=== PATIENT | female | born 1955 | race Caucasian/White ===

== ENCOUNTER 2017-08-21 00:23 | Inpatient (IN) | payer OTHER ==
[~2017-08-21] VITALS: Ht 160 cm; Wt 74.8 kg
--- NOTE | 2017-08-21 00:34 | ED GI/GU/ABDOMINAL COMPLAINT ---
History of Present Illness General Chief Complaint: Abdominal Pain/Flank Pain Stated Complaint: BIBA ABD PAIN,VOMITING Source: patient, family, old records, EMS Exam Limitations: no limitations Vital Signs & Intake/Output Vital Signs & Intake/Output Vital Signs Date Time Temp Pulse Resp B/P B/P Pulse O2 O2 Flow FiO2 Mean Ox Delivery Rate 08/21 0315 100.0 88 18 146/81 95 Room Air 08/21 0154 8.3 91 18 149/73 96 Room Air 08/21 0030 Room Air 08/21 0027 99.7 109 20 184/101 100 Room Air Allergies Coded Allergies: No Known Allergies (08/21/17) Triage Nurses Notes Reviewed? yes ? N Is pt currently ? No HPI: Patient percent with gradual onset of sharp crampy pain in her periumbilical area that radiates to her left upper quadrant and then around to her left flank. The pain started approximately 3 hours ago and has steadily been getting worse. Positive nausea and vomiting 1. No constipation or diarrhea. No dysuria or hematuria. There are no aggravating or mitigating factors. The pain is constant. The pain is currently 10 out of 10. There are no fevers or chills. Past History Travel History Traveled to [place] past 21 day No Medical History Any Pertinent Medical History? see below for history Gastrointestinal: PANCREATIC PSEUDOCYST Pneumonia Vaccine: 10/21/12 Influenza Vaccine: 05/26/13 Surgical History Surgical History: cholecystectomy, PANCREATIC CYST DRAINAGE X 3 Psychosocial History Who do you live with Family Services at Home None What is your primary language Fijian Tobacco Use: Quit >30 days ago ETOH Use: occasional use Illicit Drug Use: denies illicit drug use Family History Hx Contributory? No Review of Systems Review of Systems Constitutional: Reports: no symptoms. EENTM: Reports: no symptoms. Respiratory: Reports: no symptoms. Cardiovascular: Reports: no symptoms. GI: Reports: see HPI, abdominal pain, nausea, vomiting. Genitourinary: Reports: no symptoms. Musculoskeletal: Reports: no symptoms. Skin: Reports: no symptoms. Neurological/Psychological: Reports: no symptoms. Hematologic/Endocrine: Reports: no symptoms. Immunologic/Allergic: Reports: no symptoms. All Other Systems: Reviewed and Negative Physical Exam Physical Exam General Appearance: well developed/nourished, alert, awake, anxious, moderate distress Head: atraumatic, normal appearance Eyes: Bilateral: PERRL, EOMI. Ears, Nose, Throat, Mouth: hearing grossly normal, DRY MUCOSA Neck: normal inspection, supple, full range of motion Respiratory: normal breath sounds, chest non-tender, no respiratory distress, lungs clear Cardiovascular: regular rate/rhythm, normal peripheral pulses Gastrointestinal: normal bowel sounds, soft, no organomegaly, tenderness, NO GUARDING OR REBOUND Back: normal inspection, normal range of motion Extremities: normal range of motion Neurologic/Psych: no motor/sensory deficits, awake, alert, oriented x 3, normal mood/affect Skin: intact, normal color, warm/dry Core Measures ACS in differential dx? No Sepsis Present: No Sepsis Focused Exam Completed? No Progress Differential Diagnosis: AAA, AMI, appendicitis, bowel obstruction, colon cancer, diverticulitis, gastritis, hepatitis, ischemic bowel, inflamm bowel dis, pancreatitis, peptic ulcer, PUD/GERD, SBO Plan of Care: Orders Procedure Date/time Status Nothing by Mouth 08/21 B Active Patient Data 08/21 321 Active ED Holding Orders 08/21 313 Active Admit to inpatient 08/21 313 Active Vital Signs 08/21 313 Active Code Status 08/21 313 Active Intake & Output 08/21 35 Active URINALYSIS 08/21 33 Complete TROPONIN LEVEL 08/21 33 Complete LIPASE 08/21 33 Complete COMPREHENSIVE METABOLIC PANEL 08/21 33 Complete CBC WITHOUT DIFFERENTIAL 08/21 33 Complete AMYLASE 08/21 33 Complete EKG 08/21 33 Active Laboratory Tests 08/21/17 0219: Urine Color STRAW, Urine Clarity CLEAR, Urine pH 5.5, Ur Specific [place] 1.015, Urine Protein NEG, Urine Ketones NEG, Urine Nitrite NEG, Urine Bilirubin NEG, Urine Urobilinogen 0.2, Ur Leukocyte Esterase NEG, Ur Microscopic EXAM NOT REQUIRED, Urine Hemoglobin NEG, Urine Glucose NEG 08/21/17 0036: Anion Gap 14, Estimated GFR > 60, BUN/Creatinine Ratio 18.3, Glucose 97, Calcium 9.7, Total Bilirubin 0.4, AST 32, ALT 37, Alkaline Phosphatase 115, Troponin I < 0.01, Total Protein 8.1, Albumin 4.6, Globulin 3.5, Albumin/Globulin Ratio 1.3, Amylase 77, Lipase 449 H, CBC w Diff MAN DIFF ORDERED, RBC 4.52, MCV 93.5, MCH 31.0, RDW 13.7, MPV 8.9, Gran % 60.0, Lymphocytes % 18.1 L, Monocytes % 20.9 H , Eosinophils % 0.7, Basophils % 0.3, Absolute Granulocytes 5.0, Segmented Neutrophils 68, Band Neutrophils 3, Absolute Lymphocytes 1.5, Lymphocytes 26, Monocytes 2, Absolute Monocytes 1.8 H, Eosinophils 1, Absolute Eosinophils 0.1, Absolute Basophils 0, Platelet Estimate ADEQUATE, Polychromasia 1+, Poikilocytosis 1+, Ovalocytes 1+, PUBS MCHC 33.1, Fld Total RBCs Counted 100 Initial ED EKG: NSR, no ST T wave changes Prior EKG: unchanged Departure Departure Disposition: STILL A PATIENT Condition: Fair Clinical Impression Primary Impression: Pancreatitis Referrals: Lenore HICKS,Sean Cristina (PCP/Family) Departure Forms: Customer Survey General Discharge Information Admission Note Spoke With: Qing Cabezas MD Documentation of Exam: Documentation of any treatments & extenuating circumstances including Concerns Regarding Discharge (functional status, medication knowledge or non-compliance, living conditions, etc.) that warrant an admission rather than observation: [NPO , IV FLUIDS, PAIN CONTROL, GI CONSULTATION]
[2017-08-21 00:43] LABS: ABSOLUTE BASOPHIL COUNT 0 /CUMM (0.0-0.2); ABSOLUTE EOSINOPHIL COUNT 0.1 /CUMM (0.0-0.7); ABSOLUTE LYMPH COUNT 1.5 /CUMM (1.2-3.4); ABSOLUTE MONOCYTE COUNT 1.8 /CUMM (0.10-0.60); BASOPHIL % 0.3 % (0.0-2.0); EOSINOPHIL % 0.7 % (0-5); HEMATOCRIT 42.3 % (37-47); MEAN CORPUSCULAR HGB CONC 33.1 G/DL (33.0-37.0); MEAN CORPUSCULAR VOLUME 93.5 FL (81.0-99.0); MEAN PLATELET VOLUME 8.9 FL (7.4-10.4); PLATELET COUNT 260 /CUMM (130-400); RBC DISTRIBUTION WIDTH 13.7 % (11.5-14.5); RED BLOOD CELL CT 4.52 /CUMM (4.20-5.40); WHITE BLOOD CELL COUNT 8.4 /CUMM (4.8-10.8)
--- NOTE | 2017-08-21 02:48 | CT SCAN REPORT ---
CT ABDOMEN AND PELVIS WITH CONTRAST CLINICAL INFORMATION: Periumbilical pain. COMPARISON: Abdominal MRI January 04, 2017. TECHNIQUE: Multidetector volumetric imaging was performed of the abdomen and pelvis following IV administration of 91 mL of Optiray 320 intravenous contrast. Sagittal and coronal reformatted images were obtained on the technologist's workstation. FINDINGS: Dependent atelectasis at the lung bases. Redemonstration of a 4.2 cm x 3.4 cm cyst within the body of the pancreas that is similar in size of the abdominal MRI from January 04, 2017. The pancreatic parenchyma is heterogeneous adjacent to the cyst and there are peripancreatic inflammatory changes raising the concern for superimposed acute pancreatitis. Recommend correlation with serum amylase/lipase. The splenic vein is patent. The liver, spleen, and adrenal glands are normal. The gallbladder is surgically absent. There is extensive aortoiliac atherosclerotic calcification. No aneurysm. The kidneys exhibit symmetric nephrograms without evidence of hydronephrosis or nephrolithiasis. No focal renal lesions. There is a moderate-sized hiatal hernia. Moderate volume intracolonic stool. The large and small bowel are normal in caliber without evidence of mechanical obstruction. No focal inflammatory changes adjacent to the large or the small bowel. The appendix is normal. There is no free air and there is no intra-abdominal free fluid. No mesenteric or retroperitoneal adenopathy. Fibroid uterus. No pelvic adenopathy. No free fluid within the pelvis. There are no acute osseous abnormalities. Small fat-containing umbilical hernia. IMPRESSION: Stable size of the known large cyst within the pancreatic body. There are new peripancreatic inflammatory changes adjacent to the pancreatic body and tail with parenchymal heterogeneity raising the concern for acute pancreatitis for which correlation with serum amylase/lipase is recommended.
[2017-08-21] MEDS ORDERED: VITAMIN D250000 UNIT PO (04:10)
[2017-08-21] MEDS ORDERED: LEVOTHYROXINE100 MC1 PO (04:10)
[2017-08-21] MEDS ORDERED: ASPIRIN EC81 M1 PO (04:11)
--- NOTE | 2017-08-21 04:18 | History & Physical ---
Cesilia Moise 08/21/17 0418: General Information and HPI MD Statement: I have seen and personally examined SAGE DUNBAR and documented this H&P. The patient is a 62 year old F who presented with a patient stated chief complaint of l left quadrant abdominal pain radiating to flank.. Source of Information: patient, family, old records Exam Limitations: no limitations History of Present Illness: Ms Dunbar is a 62-year-old woman who is known to be in her usual state of health until a few weeks ago. Past GI history: gallstone pancreatitis complicated by pancreatic pseudocyst which was drained in 2012 (last endoscopic ultrasound was done in 2013), cholecystectomy, persistent left upper quadrant pain, GERD with esophagitis, H. pylori infection without MALT. She also has history of hypothyroidism. Nonsmoker. Nonalcoholic. She was brought to [facility] with a chief concern of acute onset of left upper quadrant pain, severity 10/10, radiation to the left back region, no aggravating or relieving factors. She had her regular meal approximately 3 hours, prior to presentation. She reported vomiting 3, nonbloody, green color. She had similar symptoms of acute onset of left upper quadrant pain, almost every week which was relieved only with rest. No report of chest pain, palpitations, shortness of breath. No loss of consciousness, other neurological symptoms. No dysuria, melena, bleeding per rectum, diarrhea. Allergies/Medications Allergies: Coded Allergies: No Known Allergies (08/21/17) Home Med list Aspirin (Ecotrin*) 81 MG TABLET. 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 Psychosocial History Services at Home: None ETOH Use: occasional use Illicit Drug Use: denies illicit drug use Review of Systems Review of Systems Constitutional: Reports: see HPI. Exam & Diagnostic Data Last 24 Hrs of Vital Signs/I&O Vital Signs Date Time Temp Pulse Resp B/P B/P Pulse O2 O2 Flow FiO2 Mean Ox Delivery Rate 08/21 0315 100.0 88 18 146/81 95 Room Air 08/21 0154 8.3 91 18 149/73 96 Room Air 08/21 0030 Room Air 08/21 0027 99.7 109 20 184/101 100 Room Air Intake & Output 08/21 0800 08/21 0000 08/20 1600 Intake Total 1000 Output Total Balance 1000 Intake, IV 1000 Patient 165 lb Weight Weight Reported by Patient Measurement Method Physical Exam General Appearance Alert Skin No Rashes, No Breakdown, No Significant Lesion Skin Temp/Moisture Exam: Warm/Dry Sepsis Skin Exam (color): Normal for Ethnicity HEENT Atraumatic Neck Supple Lymphatic Cervical nl Cardiovascular Regular Rate, Normal S1, Normal S2 Lungs Clear to Auscultation, Normal Air Movement Abdomen Normal Bowel Sounds, Soft, ttenderness in left upper quadrant, nno discoloration of the skin, negative Yvon and Canela Weber. Neurological Normal Speech, Strength at 5/5 X4 Ext, Normal Tone, Sensation Intact, Cranial Nerves 3-12 NL, Reflexes 2+ Extremities No Clubbing, No Cyanosis, No Edema Vascular Pulses Symmetrical Sepsis Peripheral Pulse Location: Dorsalis Pedis Sepsis Peripheral Pulse Exam: Normal Body Front and Back (Adult) 1) Reported pain and tenderness Diagnostic Data EKG Results Normal sinus rhythm, normal axis, nonspecific ST changes seen. Assessment/Plan Assessment: Ms Dunbar is a 62 yr old woman gallstone pancreatitis complicated by pancreatic pseudocyst which was drained in 2012 (last endoscopic ultrasound was done in 2013), cholecystectomy, persistent left upper quadrant pain, GERD with esophagitis, H. pylori infection without MALT. She also has history of hypothyroidism. At the time of admission, vitals-temperature 99.7, blood pressure 146/81, respiration 18, pulse rate 88, pulse ox 96% on room air. Pertinent lab findings: WBC 8.4, hemoglobin 14.0, platelets 260. Normal electrolytes sodium 143, potassium 4.4 Renal function-BUN 11, serum creatinine 0.6. Liver chemistries-AST 32, ALT 37, alkaline phosphatase 115. Lipase 449, amylase 77. Cardiac enzymes-troponin 0.01. CT scan of abdomen revealed 4.2 cm x 3.4 cm cyst within the body of the pancreas , which is similar in size to previous imaging findings. Although pancreatic parenchyma is heterogeneous adjacent to the cyst and there are peripancreatic inflammatory changes raising the concern for superimposed acute pancreatitis. Etiology in her case is likely from gallstone causing pancreatitis; she also has a pancreatic pseudocyst which is stable in size, with findings suggestive of chronic pancreatitis. She has been having pain, which raises concern for chronic pancreatitis changes or abdominal wall related. She has abdominal pain, and radiological findings, for which she could be treated for acute pancreatitis. Lipase, amylase are not elevated likely from mild nature of disease and/or chronic pancreatic acinar cell damage. Plan: #1 abdominal pain-secondary to acute pancreatitis; patient should be started on intravenous fluids-Ringer's lactate 200 mL an hour. Nothing by mouth at this time. Advance diet as tolerated. Right upper quadrant ultrasound should be done, if any change in biliary ductal anatomy. GI consult. #2 pain management-to be done with morphine, Dilaudid and Tylenol. Defer the decision to start any pancreatic enzymatic supplements to the GI at this time. Amitriptyline could be tried in her case. #3 hypothyroidism-continue home dose of LT4. Housekeeping: #1 DVT prophylaxis-subcutaneous heparin. #2 pain pathway #3 CODE STATUS-full code. As Ranked By This Provider Problem List: 1. Pancreatitis 2. ac pancreatitis Core Measures/Misc (05/12) Acute Coronary Syndrome ACS Diagnosis: No Congestive Heart Failure Congestive Heart Failure Diagnosis No Cerebrovascular Accident CVA/TIA Diagnosis: No VTE (View Protocol) VTE Risk Factors No risk factors No Mechanical VTE Prophylaxis d/t N/A MechProphylax Ordered No VTE Pharm Prophylaxis d/t NA PharmProphylax ordered Sepsis (View protocol) Sepsis Present: No Qing Cabezas 08/21/17 0934: Attending MD Review Statement Attending Statement Attending MD Statement: examined this patient, discuss w/resident/PA/CAKE WRAPPER, agreed w/resident/PA/CAKE WRAPPER, discussed with family, reviewed EMR data (avail), reviewed images, amended to note Attending Assessment/Plan: CC: Left flank pain and abdominal pain PMH: Hypothyroidism, recurrent pancreatitis Patient is coming to hospital for three-hour duration of severe 10 over 10 pain in left flank, left side of the abdomen. Patient gets this kind of pain on and off, last pain episode was 3 weeks back which she self treated with the heat therapy at home but today patient's pain was intolerable, had 3 episodes of nonbloody green vomiting so she came to ER. Of note patient has a history of pancreatitis since 2012, probably related to gallstone, had this cholecystectomy but unfortunately developed pancreatic pseudocyst which was drained in the past. Most recently patient underwent EUS and biopsy, persistently has pancreatic pseudocyst. Patient follows up with GI gastroenterology and Dr. Blanchard. Other than abdominal pain patient does not have any other symptoms, no fever, ROS unremarkable. Vitals: T max 99.7, HR 107, RR 20, blood pressure 184/101, saturating well on room air. On exam: A O 3, cooperative, no acute distress, neck supple, JVD normal, no lymphadenopathy, mucosa moist, no focal neurological deficit, no dependent edema , no obvious skin rashes or inflammation CVS: S1-S2, RRR. RS: Clear to auscultate bilaterally. Abdomen: Tender all over, no guarding or rigidity ND, bowel sounds present. Labs: CBC, BMP, LFT, troponin unremarkable lipase 449, UA unremarkable CT abdomen and pelvis with IV contrast: Stable size of the known large cyst within the pancreatic body. There are new peripancreatic inflammatory changes adjacent to the pancreatic body and tail with parenchymal heterogeneity raising the concern for acute pancreatitis for which correlation with serum amylase/lipase is recommended. Assessment and plan 62-year-old female with past medical history significant for chronic Vs recurrent pancreatitis with chronic pancreatic pseudocyst presented in ER for worsening Abdominal pain over a few hours duration, more on the left flank, 10 over 10, nonradiating. Patient was tender on examination but no guarding or rigidity. Even though lipase is not significantly elevated, she is found to have pancreatitis on CT imaging with stable sized large known cyst within pancreatic body. + acute on chronic pancreatitis with pseudocyst + History of hypothyroidism - Admit to general medicine - continue Ringer's lactate at 200 mL per hour - GI consult in a.m., - Right upper quadrant ultrasound, - nothing by mouth - Adequate pain control - Continue home doses of levothyroxine
[2017-08-21 04:30] VITALS: BP 126/70
[2017-08-21 06:33] VITALS: BP 100/60
[2017-08-21 09:21] LABS: ABSOLUTE BASOPHIL COUNT 0 /CUMM (0.0-0.2); ABSOLUTE EOSINOPHIL COUNT 0 /CUMM (0.0-0.7); ABSOLUTE LYMPH COUNT 0.6 /CUMM (1.2-3.4); ABSOLUTE MONOCYTE COUNT 0.3 /CUMM (0.10-0.60); BASOPHIL % 0 % (0.0-2.0); EOSINOPHIL % 0.2 % (0-5); RED BLOOD CELL CT 3.87 /CUMM (4.20-5.40)
--- NOTE | 2017-08-21 09:36 | Admission Certification ---
Admission Certification Certification Statement - As attending physician, I certify that at the time of - admission, based on clinical presentation, severity of - symptoms, need for further diagnostic testing and - therapeutic interventions, and risk of adverse outcomes - without in-hospital treatment, in my clinical assessment, - this patient requires an acute hospital stay for a minimum - of two nights or longer. I have also considered psychsocial - factors such as support system, advanced age, financial - issues, cognitive issues, and failed out-patient treatments, - past re-admission history, safety of patient, and lack of - compliance as applicable. Specific rationale supporting this admission is: Acute and chronic pancreatitis
[2017-08-21 09:37] LABS: ABSOLUTE GRANULOCYTE CT 11.6 /CUMM (1.4-6.5); MEAN CORPUSCULAR HGB 31.5 PG (27.0-31.0); MEAN CORPUSCULAR HGB CONC 33.8 G/DL (33.0-37.0); MEAN CORPUSCULAR VOLUME 93.3 FL (81.0-99.0); RBC DISTRIBUTION WIDTH 13.2 % (11.5-14.5); WHITE BLOOD CELL COUNT 12.5 /CUMM (4.8-10.8)
[2017-08-21 09:43] LABS: HEMATOCRIT 36.1 % (37-47)
[2017-08-21 09:59] LABS: GRANULOCYTE % 92.7 % (42.2-75.2)
--- NOTE | 2017-08-21 10:28 | ULTRASOUND REPORT ---
EXAMINATION: US ABDOMEN COMPLETE CLINICAL INFORMATION: Abdominal pain.. COMPARISON: None TECHNIQUE: Real-time imaging of the abdominal viscera. FINDINGS: PANCREAS: 4.2 x 4.2 x 3.5 cm anechoic, simple appearing cyst of the pancreatic body. This cyst measured up to 3.6 cm maximum dimension on 06/09/2014. No evidence of mural nodule or thick, vascular septation within the lesion. Pancreatic duct is normal in caliber. ABDOMINAL AORTA: The proximal segment is normal in caliber. INFERIOR VENA CAVA: Visualized portions are normal. LIVER: Normal. The liver demonstrates normal size, contour and echogenicity. No focal lesion or intrahepatic biliary duct dilatation. GALLBLADDER: Gallbladder is surgically absent. COMMON BILE DUCT: Normal in caliber measuring 0.7 cm in diameter. RIGHT KIDNEY: Normal. No hydronephrosis. No renal calculi or focal parenchymal lesions. The kidney measures 10.3 cm in maximum dimension. LEFT KIDNEY: Normal. No hydronephrosis. No renal calculi or focal parenchymal lesions. The kidney measures 10.5 cm in maximum dimension. SPLEEN: Normal. The spleen measures 9.8 cm in maximum dimension. FREE FLUID: None. IMPRESSION: 1. The 4.2 x 4.2 x 3.5 cm cyst within the pancreatic body has a simple appearance. 2. Mild peripancreatic edema observed on the recent CT imaging exam (suggestive of mild pancreatitis) is not detected with ultrasound.
--- NOTE | 2017-08-21 13:56 | PN- Att Addend ---
Attending Addendum Attending Brief Note Patient seen and examined. Lying in bed not in acute distress. Denies nausea vomiting at present. Reports abdominal pain has improved She had low-grade fever of 100.0. White cell count has trended up to 12.5 today. Gen. appearance: Well developed, not in acute distress Heart: S1-S2 regular Lungs: Fair entry bilaterally, clear to auscultation Abdomen: Soft, mild diffuse tenderness, no rebound, no guarding with normal bowel sounds Extremities: No pedal edema Skin: Intact with no rashes Laboratory Tests 08/21/17 0845: Anion Gap 11, Estimated GFR > 60, BUN/Creatinine Ratio 22.5, Total Bilirubin 0.3 , Direct Bilirubin 0.3, AST 97 H, ALT 75 H, Alkaline Phosphatase 96, Troponin I < 0.01, Total Protein 6.3, Albumin 3.4 L, CBC w Diff NO MAN DIFF REQ, RBC 3.87 L, MCV 93.3, MCH 31.5 H, RDW 13.2, Gran % 92.7 H, Lymphocytes % 4.7 L, Monocytes % 2.4, Eosinophils % 0.2, Basophils % 0, Absolute Granulocytes 11.6 H , Absolute Lymphocytes 0.6 L, Absolute Monocytes 0.3, Absolute Eosinophils 0, Absolute Basophils 0, PUBS MCHC 33.8 08/21/17 0600: Troponin I Cancelled 08/21/17 0219: Urine Color STRAW, Urine Clarity CLEAR, Urine pH 5.5, Ur Specific [place] 1.015, Urine Protein NEG, Urine Ketones NEG, Urine Nitrite NEG, Urine Bilirubin NEG, Urine Urobilinogen 0.2, Ur Leukocyte Esterase NEG, Ur Microscopic EXAM NOT REQUIRED, Urine Hemoglobin NEG, Urine Glucose NEG 08/21/17 0036: Anion Gap 14, Estimated GFR > 60, BUN/Creatinine Ratio 18.3, Glucose 97, Calcium 9.7, Total Bilirubin 0.4, AST 32, ALT 37, Alkaline Phosphatase 115, Troponin I < 0.01, Total Protein 8.1, Albumin 4.6, Globulin 3.5, Albumin/Globulin Ratio 1.3, Amylase 77, Lipase 449 H, CBC w Diff MAN DIFF ORDERED, RBC 4.52, MCV 93.5, MCH 31.0, RDW 13.7, MPV 8.9, Gran % 60.0, Lymphocytes % 18.1 L, Monocytes % 20.9 H , Eosinophils % 0.7, Basophils % 0.3, Absolute Granulocytes 5.0, Segmented Neutrophils 68, Band Neutrophils 3, Absolute Lymphocytes 1.5, Lymphocytes 26, Monocytes 2, Absolute Monocytes 1.8 H, Eosinophils 1, Absolute Eosinophils 0.1, Absolute Basophils 0, Platelet Estimate ADEQUATE, Polychromasia 1+, Poikilocytosis 1+, Ovalocytes 1+, PUBS MCHC 33.1, Fld Total RBCs Counted 100 08/21/17 0033: Urine Osmolality 432, Ur Random Creatinine 31.5, Ur Random Sodium 156 H, Ur Random Potassium 22.9, Fraction Sodium Excret 1.5 H Problems: 1. Recurrent pancreatitis with large cyst Plan: -Patient reports that she had a pancreatic cyst drained this summer at [facility]. Please obtain records. -Continue IV hydration. Continue current pain regimen. Once she begins to improve clinically transitioned to oral pain regimen. -Follow-up with the gastroenterology service whether patient will requireDrainage of her current cyst. -If patient becomes febrile obtain blood cultures and begin on broad-spectrum antibiotic therapy. -Repeat serum chemistry and CBC in a.m.
[2017-08-21 14:24] VITALS: BP 120/70
[2017-08-21 23:00] VITALS: BP 110/60
--- NOTE | 2017-08-22 00:38 | Cons- Gastroenterology ---
General Information and HPI Consulting Request Date of Consult: 08/21/17 Requested By: Julia HICKS,Golden Reason for Consult: I was called earlier today to assess pancreatitis in coverage for Dr. Stacia Blanchard. Source of Information: patient, old records Exam Limitations: not all of the old [place] [facility] records were scanned into [facility]. History of Present Illness: 62 y/o female, non-HTN, non-DM, non-HLD, hypoT4, post 10/20/12: lap CCKY for gallstone pancreatitis, c/b pancreatic pseudocyst, drained in 2012. She was last seen by Dr. Stacia Blanchard in the office 12/20/16. She previously had multiple procedures by him, and has a history of H. pylori gastritis with mucosal immune proliferation, but no MALT lymphoma. When last seen by him, she claimed she saw Dr. Lee at [facility] to reassess her pancreatic cyst, after her 01/04/17: MRI abdomen. *She claimed Dr. Lee drained her "pseudocyst' via repeat EUS at [facility] in 01/2017, but I could not locate this in [facility] EMR. She previously had 11/24/13: EUS with FNA in [place] by Dr. Ulloa (who subsequently relocated). The FNA then of her pancreatic cyst at the junction of the body & tail was reportedly benign. However, the results were never scanned into the [facility] EMR. 01/04/17: MR ABDOMEN WITHOUT AND WITH CONTRAST- Evidence of interval increase in size of the indexed, clinically known, unilocular, simple-appearing cystic mass involving the body of the pancreas, measuring approximately 4.2 cm at its maximum dimension as compared to 3.4 cm on the most recent prior MRI study dated 06/09/2014. No other significant change or any new abnormalities. 01/14/13: EGD/colonoscopy for GERD, dysphagia, & screening- minimal esophagitis- bxs neg, gastritis- severe CAG/mod CFG with IM, + HP, *special stains negative for lymphoproliferative disorder but indeterminate for clonal rearrangement; diminuitive colon polyps- hyperplastic, focal right colonic diverticulum. [H. pylori txd with ? regimen]. 04/06/13: Repeat EGD- improved gastritis, healed GERD. Repeat bxs- moderate lympho-plasmacytic infiltration and intestinal metaplasia, H. pylori negative. No evidence of lymphoma. 08/25/14: Repeat EGD- HH, mild gastritis, multiple gastric bxs- reactive gastropathy with focal IM, negative dysplasia, H. pylori negative, benign fundic gland polyp. No evidence of lymphoma. Duodenal erosions. The patient denied any history of EtOH. Ex-20 pk yr cigarette smoker, D/C 2012. The patient presented to the [place] ER 08/21/17, arriving at 12:23 a.m., c/o acute onset LUQ pain, "10 out of 10", radiating to the left back, without any ameliorating or precipitating factors. She ate a non-greasy meal 3 hours prior to the onset of her symptoms. Upon arrival to the ER, BP 184/101, P 109, R 20, T 99.7 (Tm 100), O2 sat RA 100%. Her BP improved with pain control. She had 3 episodes of nausea & vomiting, nonbloody & bilious in nature. She denied any associated CP, SOB, palpitations, fevers, chills, jaundice, dark urine, light stools, pruritus, or confusion. She denied any sx of UTI or URI. Her weight was stable. Since her pancreatic cyst was last drained at [facility] in 01/2017, she had minor flares of abdominal pain every few weeks. She denied any long-standing diarrhea, constipation, obstipation, tenesmus, or rectal bleeding. She was given IVF, MS, & Zofran in the ER. The analgesics helped, but "seemed to wear off before the next dose". She had minimal symptoms of GERD, without any odynophagia, dysphagia, hematemesis, early satiety, or melena. She denied any NSAID use, Sulfa meds, or HCTZ. She denied any new meds or herbal meds. Aside from her mother having GERD, she denied any FHx of additional GI disease, GBD, PUD, inherited pancreatitis, GI Ca, or inherited liver disease. One of her brothers had a liver transplant for Hep C. 10/15/12: *TG 44. 09/25/13: Hep A Ab, Hep Bs Ag, Hep B core Ab, & Hep C Ab- all negative. 04/01/14: normal CA 19-9: 15 (< 34). 08/21/17: Admission labs 12:36 a.m.- WBC 8.4 (68S/3B/26L/2M/1E), H/H 14/42.3, MCV 93.5, RDW 13.7, PLT 260, glucose 97, BUN/Cr 11/0.6, GFR > 60, Na 143, K 4.4, HCO3 25, AG 14, amylase 77, minimal lipase 449, Ca 9.7, albumin 4.6, globulin 3.5, TBil 0.4, alk phos 115, AST 32, ALT 37, troponin < 0.01 08/21/17: 8:45 a.m.- WBC 12.5, H/H 12.2/36.1, PLT- clumped, BUN/Cr 9/0.4, GFR > 60, na 136, K 4.6, HCO3 20, AG 11, albumin 3.4, globulin 2.9, TBil 0.3, DBil 0.3 , alk phos 96, *AST 97, *ALT 75, troponin < 0.01. 08/21/17: U/A- clear straw, 1.015, 5.5, micro-neg; neg nitrite, neg esterase 08/21/17: EKG- NSR @ 88, normal axis, normal intervals, mild NSST. 08/21/17: CT ABD & PELVIS W IV CONTRAST- Stable size of the known large 4.2 x 3.4 cm cyst within the pancreatic body ( similar in size to abdominal MRI of 01/04/17, *although the patient claimed it was drained at [facility] in 01/2017). There are new peripancreatic inflammatory changes adjacent to the pancreatic body and tail with parenchymal heterogeneity raising the concern for acute pancreatitis for which correlation with serum amylase/lipase is recommended. Patent splenic vein. Post-CCKY. Extensive aorto-iliac ASHD, without AAA. Moderate HH. Normal AP. No free air, ascites, or adenopathy. Fibroid uterus. Small fat containing umbilical hernia. 08/21/17: US ABDOMEN COMPLETE- 1. The 4.2 x 4.2 x 3.5 cm cyst within the pancreatic body has a simple appearance. 2. Mild peripancreatic edema observed on the recent CT imaging exam (suggestive of mild pancreatitis) is not detected with ultrasound. Allergies/Medications Allergies: Coded Allergies: No Known Allergies (08/21/17) Home Med List: Aspirin (Ecotrin*) 81 MG TABLET. 1 TAB PO EOD HEART HEALTH (Reported) Ergocalciferol (Vitamin D2) (Vitamin D2) 50,000 UNIT CAPSULE 1 CAP PO QW VITAMIN SUPPORT (Reported) Levothyroxine Sodium 100 MCG TABLET 1 TAB PO DAILY THYROID HEALTH (Reported) Current Medications: Current Medications Sig/Aleta Start time Last Medication Dose Route Stop Time Status Admin Acetaminophen 650 MG Q8P PRN 08/21 0500 AC PO Aspirin Buffered 81 MG DAILY 08/21 1000 AC PO Heparin Sodium 5,000 UNIT Q8 08/21 0600 AC 08/21 (Porcine) SC 2014 Hydromorphone HCl 0.4 MG Q4P PRN 08/21 1130 AC 08/22 IV 0037 Hydromorphone HCl 0.4 MG Q6P PRN 08/21 0500 DC 08/21 IV 1020 Lactated Ringer's 1,000 ML Q8H 08/21 0500 DC 08/21 IV 08/21 1759 2013 Levothyroxine Sodium 0.1 MG DAILY AC 08/21 0700 AC 08/21 PO 0637 Morphine Sulfate 2 MG Q6P PRN 08/21 0445 AC 08/21 IV 2347 Morphine Sulfate 0 .STK-MED ONE 08/21 0332 DC .ROUTE Morphine Sulfate 4 MG ONCE ONE 08/21 0300 DC 08/21 IV 08/21 0301 0333 Ondansetron HCl 4 MG ONCE ONE 08/21 1515 DC 08/21 IV 08/21 1516 1531 Sodium Chloride 1,000 ML BOLUS ONE 08/21 0045 DC 08/21 IV 08/21 0144 0044 Past History Travel History Traveled to [place] past 21 day No Medical History Blood Transfusion Hx: No Neurological: NONE EENT: NONE Cardiovascular: NONE Respiratory: NONE Gastrointestinal: PANCREATIC PSEUDOCYST, Hx gallstone pancreatitis, post lap CCKY 10/20/12 Hepatic: cholelithiasis (*post lap CCKY) Renal: NONE Musculoskeletal: NONE Psychiatric: NONE Endocrine: hypothyroidism Blood Disorders: NONE Cancer(s): NONE WELDER FITTER GAS/Reproductive: NONE Surgical History Surgical History: cholecystectomy (10/20/12: lap CCKY), PANCREATIC CYST DRAINAGE X 3 Family History Relations & Conditions If Any: FATHER (coronary artery disease). , Age 77; Cause: ASHD ( arteriosclerotic heart disease). MOTHER (GERD). Age 90. BROTHER, , Age 58; Cause: AAA (abdominal aortic aneurysm). BROTHER (alive, post liver transplant for Hep C). Psychosocial History Where Do You Live? Home Who Do You Live With? boyfriend Services at Home: None Primary Language: Prydeinig Smoking Status: Light Tobacco Smoker ETOH Use: denies use Illicit Drug Use: denies illicit drug use Living Will? no Power of Commissary Superintendent/HCP? no Other Social History: Single. No children. Lives with boyfriend. Ex-20 pk yr cigarette smoker, essentially D/c 2012. No EtOH or illicit drugs. 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 Functional Ability ADLs Independent: dressing, eating, toileting, bathing. Ambulation: independent IADLs Independent: shopping, housework, finances, food prep, telephone, transportation , medication admin. 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 Review of Systems Constitutional: Denies: chills, diaphoresis, fever, malaise, weakness, unexplained weight loss. EENTM: Denies: blurred vision, double vision, visual changes, eye pain, eye drainage, eye tearing, icterus, ear discharge, ear pain, ear redness, hearing changes, nasal congestion, epistaxis, nasal pain, throat pain, throat swelling, mouth pain, tooth pain. Cardiovascular: Denies: chest pain, edema, orthopena, palpitations, peripheral edema, syncope. Respiratory: Denies: cough, hemoptysis, orthopnea, short of breath, sputum production, stridor, wheezing. GI: Reports: abdominal pain, nausea, vomiting. Denies: bloating, constipation, diarrhea, distention, bowel incontinence, melena, bloody stool, changes in stool , steatorrhea. Genitourinary: Denies: discharge, dysuria, frequency, hematuria, hesitation, nocturia, pain, urgency. Musculoskeletal: Denies: back pain, gout, joint pain, joint swelling, muscle pain, muscle stiffness, neck pain. Skin: Denies: cysts, change in skin color, change in hair/nails, dryness, erythema, jaundice, lesions, lymphangitis, lumps, moles, rash. Neurological/Psychological: Denies: anxiety, ataxia, cognitive dysfunction, confusion, depressed, dementia, emotional problems, headache, numbness, paresthesia, pre-existing deficit, petit mal seizures, tingling, tremors, tonic-clonic seizures, unable to move lower ext , unable to move upper ext, weakness. Hematologic/Endocrine: Denies: bruising, bleeding, polyuria, polydipsia. Immunologic/Allergic: Denies: splenectomy, HIV/AIDS, lymphadenopathy. All Other Systems: Reviewed and Negative Exam & Diagnostic Data Vital Signs and I&O Vital Signs Date Time Temp Pulse Resp B/P B/P Pulse O2 O2 Flow FiO2 Mean Ox Delivery Rate 08/21 2300 98.3 79 20 110/60 96 Room Air 08/21 1424 97.1 99 19 120/70 96 08/21 0633 97.1 83 20 100/60 91 Room Air 08/21 0430 98.1 95 20 126/70 94 Room Air 08/21 0315 100.0 88 18 146/81 95 Room Air 08/21 0154 8.3 91 18 149/73 96 Room Air 08/21 0030 Room Air 08/21 0027 99.7 109 20 184/101 100 Room Air Intake & Output 08/21 1600 08/21 0400 08/20 1600 08/20 0400 08/19 1600 08/19 0400 Intake Total 500 1000 Output Total Balance 500 1000 Intake, IV 500 1000 Intake, Oral 0 Patient 165 lb 165 lb Weight Weight Reported by Patient Reported by Patient Measurement Method Physical Exam: Well-developed, well-nourished female, non-toxic appearing, in no apparent distress. Sclera anicteric. Conjunctiva pink. Oropharynx clear. No oral thrush. No aphthous ulcers. There is no adenopathy, thyromegaly, or JVD. No peripheral stigmata of inflammatory bowel disease or chronic liver disease on exam. Marcelo spiders on the anterior chest wall. Breast & pelvic exams: API. No CVA tenderness. No spine tenderness. Lungs: clear to A&P. No wheezing, rales, or rhonchi. Heart exam: regular rate rhythm, S1 and S2, without any murmur. Abdominal exam: normal bowel sounds, soft belly, mild epigastric tenderness without guarding or rebound (medicated shortly before my exam). Small reducible umbilical hernia, otherwise no mass. No organomegaly. No fluid shift. No pulsatile mass. No epigastric bruit. Digital rectal exam: deferred by patient. Extremities: without C, C, or E. No rash. Mild DJD. No acute arthropathy. No palpable cords. No palmar erythema. No Dupuytren's contractures. Distal pulses 1+ bilaterally. DTRs 2+ bilaterally. Alert and oriented x 3. No tremor. No asterixis. Results Pertinent Lab Results: Laboratory Tests 08/21 08/21 0845 0600 Chemistry Sodium (137 - 145 mmol/L) 136 L Potassium (3.5 - 5.1 mmol/L) 4.6 Chloride (98 - 107 mmol/L) 105 Carbon Dioxide (22 - 30 mmol/L) 20 L Anion Gap (5 - 16) 11 BUN (7 - 17 mg/dL) 9 Creatinine (0.5 - 1.0 mg/dL) 0.4 L Estimated GFR (>60 ml/min) > 60 BUN/Creatinine Ratio (7 - 25 %) 22.5 Total Bilirubin (0.2 - 1.3 mg/dL) 0.3 Direct Bilirubin (< 0.4 mg/dL) 0.3 AST (14 - 36 U/L) 97 H ALT (9 - 52 U/L) 75 H Alkaline Phosphatase (<127 U/L) 96 Troponin I (< 0.11 ng/ml) < 0.01 Cancelled Total Protein (6.3 - 8.2 g/dL) 6.3 Albumin (3.5 - 5.0 g/dL) 3.4 L Hematology CBC w Diff NO MAN DIFF REQ WBC (4.8 - 10.8 /CUMM) 12.5 H RBC (4.20 - 5.40 /CUMM) 3.87 L Hgb (12.0 - 16.0 G/DL) 12.2 Hct (37 - 47 %) 36.1 L MCV (81.0 - 99.0 FL) 93.3 MCH (27.0 - 31.0 PG) 31.5 H RDW (11.5 - 14.5 %) 13.2 Plt Count (/CUMM) Gran % (42.2 - 75.2 %) 92.7 H Lymphocytes % (20.5 - 51.1 %) 4.7 L Monocytes % (1.7 - 9.3 %) 2.4 Eosinophils % (0 - 5 %) 0.2 Basophils % (0.0 - 2.0 %) 0 Absolute Granulocytes (1.4 - 6.5 /CUMM) 11.6 H Absolute Lymphocytes (1.2 - 3.4 /CUMM) 0.6 L Absolute Monocytes (0.10 - 0.60 /CUMM) 0.3 Absolute Eosinophils (0.0 - 0.7 /CUMM) 0 Absolute Basophils (0.0 - 0.2 /CUMM) 0 PUBS MCHC (33.0 - 37.0 G/DL) 33.8 08/21 08/21 0219 0036 Chemistry Sodium (137 - 145 mmol/L) 143 Potassium (3.5 - 5.1 mmol/L) 4.4 Chloride (98 - 107 mmol/L) 104 Carbon Dioxide (22 - 30 mmol/L) 25 Anion Gap (5 - 16) 14 BUN (7 - 17 mg/dL) 11 Creatinine (0.5 - 1.0 mg/dL) 0.6 Estimated GFR (>60 ml/min) > 60 BUN/Creatinine Ratio (7 - 25 %) 18.3 Glucose (65 - 99 mg/dL) 97 Calcium (8.4 - 10.2 mg/dL) 9.7 Total Bilirubin (0.2 - 1.3 mg/dL) 0.4 AST (14 - 36 U/L) 32 ALT (9 - 52 U/L) 37 Alkaline Phosphatase (<127 U/L) 115 Troponin I (< 0.11 ng/ml) < 0.01 Total Protein (6.3 - 8.2 g/dL) 8.1 Albumin (3.5 - 5.0 g/dL) 4.6 Globulin (1.9 - 4.2 gm/dL) 3.5 Albumin/Globulin Ratio (1.1 - 2.2 %) 1.3 Amylase (30 - 110 U/L) 77 Lipase (23 - 300 U/L) 449 H Hematology CBC w Diff MAN DIFF ORDERED WBC (4.8 - 10.8 /CUMM) 8.4 RBC (4.20 - 5.40 /CUMM) 4.52 Hgb (12.0 - 16.0 G/DL) 14.0 Hct (37 - 47 %) 42.3 MCV (81.0 - 99.0 FL) 93.5 MCH (27.0 - 31.0 PG) 31.0 RDW (11.5 - 14.5 %) 13.7 Plt Count (130 - 400 /CUMM) 260 MPV (7.4 - 10.4 FL) 8.9 Gran % (42.2 - 75.2 %) 60.0 Lymphocytes % (20.5 - 51.1 %) 18.1 L Monocytes % (1.7 - 9.3 %) 20.9 H Eosinophils % (0 - 5 %) 0.7 Basophils % (0.0 - 2.0 %) 0.3 Absolute Granulocytes (1.4 - 6.5 /CUMM) 5.0 Segmented Neutrophils (42.2 - 75.2 %) 68 Band Neutrophils (0.0 - 5.0 %) 3 Absolute Lymphocytes (1.2 - 3.4 /CUMM) 1.5 Lymphocytes (20.5 - 51.1 %) 26 Monocytes (1.7 - 9.3 %) 2 Absolute Monocytes (0.10 - 0.60 /CUMM) 1.8 H Eosinophils (0 - 5.0 %) 1 Absolute Eosinophils (0.0 - 0.7 /CUMM) 0.1 Absolute Basophils (0.0 - 0.2 /CUMM) 0 Platelet Estimate (ADEQUATE) ADEQUATE Polychromasia 1+ Poikilocytosis 1+ Ovalocytes 1+ PUBS MCHC (33.0 - 37.0 G/DL) 33.1 Other Body Source Fld Total RBCs Counted (%) 100 Urines Urine Color (YEL,AMB,STR) STRAW Urine Clarity (CLEAR) CLEAR Urine pH (5.0 - 8.0) 5.5 Ur Specific [place] (1.001 - 1.035) 1.015 Urine Protein (NEG,<30 MG/DL) NEG Urine Ketones (NEG) NEG Urine Nitrite (NEG) NEG Urine Bilirubin (NEG) NEG Urine Urobilinogen (0.1 - 1.0 EU/dl) 0.2 Ur Leukocyte Esterase (NEG) NEG Ur Microscopic EXAM NOT REQUIRED Urine Hemoglobin (NEG) NEG Urine Glucose (N MG/DL) NEG 08/21 0033 Urines Urine Osmolality (300 - 1000 MOSM/KG) 432 Ur Random Creatinine (mg/dL) 31.5 Ur Random Sodium (30 - 90 mmol/L) 156 H Ur Random Potassium (mmol/L) 22.9 Fraction Sodium Excret (<1% %) 1.5 H Imaging/Other Studies: 01/04/17: MR ABDOMEN WITHOUT AND WITH CONTRAST- Evidence of interval increase in size of the indexed, clinically known, unilocular, simple-appearing cystic mass involving the body of the pancreas, measuring approximately 4.2 cm at its maximum dimension as compared to 3.4 cm on the most recent prior MRI study dated 06/09/2014. No other significant change or any new abnormalities. 08/21/17: EKG- NSR @ 88, normal axis, normal intervals, mild NSST. 08/21/17: CT ABD & PELVIS W IV CONTRAST- Stable size of the known large 4.2 x 3.4 cm cyst within the pancreatic body ( similar in size to abdominal MRI of 01/04/17, *although the patient claimed it was drained at [facility] in 01/2017). There are new peripancreatic inflammatory changes adjacent to the pancreatic body and tail with parenchymal heterogeneity raising the concern for acute pancreatitis for which correlation with serum amylase/lipase is recommended. Patent splenic vein. Post-CCKY. Extensive aorto-iliac ASHD, without AAA. Moderate HH. Normal AP. No free air, ascites, or adenopathy. Fibroid uterus. Small fat containing umbilical hernia. 08/21/17: US ABDOMEN COMPLETE- 1. The 4.2 x 4.2 x 3.5 cm cyst within the pancreatic body has a simple appearance. 2. Mild peripancreatic edema observed on the recent CT imaging exam (suggestive of mild pancreatitis) is not detected with ultrasound. Assessment/Plan Assessment/Recommendations: 62 y/o female, non-HTN, non-DM, non-HLD, hypoT4, post 10/20/12: lap CCKY for gallstone pancreatitis, c/b pancreatic pseudocyst, drained in 2012. She was last seen by Dr. Stacia Blanchard in the office 12/20/16. She previously had multiple procedures by him, and has a history of H. pylori gastritis with mucosal immune proliferation, but no MALT lymphoma. When last seen by him, she claimed she saw Dr. Lee at [facility] to reassess her pancreatic cyst, after her 01/04/17: MRI abdomen. *She claimed Dr. Lee drained her "pseudocyst' via repeat EUS at [facility] in 01/2017, but I could not locate this in [facility] EMR. She previously had 11/24/13: EUS with FNA in [place] by Dr. Ulloa (who subsequently relocated). The FNA then of her pancreatic cyst at the junction of the body & tail was reportedly benign. However, the results were never scanned into the [facility]. 01/04/17: MR ABDOMEN WITHOUT AND WITH CONTRAST- Evidence of interval increase in size of the indexed, clinically known, unilocular, simple-appearing cystic mass involving the body of the pancreas, measuring approximately 4.2 cm at its maximum dimension as compared to 3.4 cm on the most recent prior MRI study dated 06/09/2014. No other significant change or any new abnormalities. 01/14/13: EGD/colonoscopy for GERD, dysphagia, & screening- minimal esophagitis- bxs neg, gastritis- severe CAG/mod CFG with IM, + HP, *special stains negative for lymphoproliferative disorder but indeterminate for clonal rearrangement; diminuitive colon polyps- hyperplastic, focal right colonic diverticulum. [H. pylori txd with ? regimen]. 04/06/13: Repeat EGD- improved gastritis, healed GERD. Repeat bxs- moderate lympho-plasmacytic infiltration and intestinal metaplasia, H. pylori negative. No evidence of lymphoma. 08/25/14: Repeat EGD- HH, mild gastritis, multiple gastric bxs- reactive gastropathy with focal IM, negative dysplasia, H. pylori negative, benign fundic gland polyp. No evidence of lymphoma. Duodenal erosions. The patient denied any history of EtOH. Ex-20 pk yr cigarette smoker, D/C 2012. The patient presented to the [place] ER 08/21/17, arriving at 12:23 a.m., c/o acute onset LUQ pain, "10 out of 10", radiating to the left back, without any ameliorating or precipitating factors. She ate a non-greasy meal 3 hours prior to the onset of her symptoms. Upon arrival to the ER, BP 184/101, P 109, R 20, T 99.7 (Tm 100), O2 sat RA 100%. Her BP improved with pain control. She had 3 episodes of nausea & vomiting, nonbloody & bilious in nature. She denied any associated CP, SOB, palpitations, fevers, chills, jaundice, dark urine, light stools, pruritus, or confusion. She denied any sx of UTI or URI. Her weight was stable. Since her pancreatic cyst was last drained at [facility] in 01/2017, she had minor flares of abdominal pain every few weeks. She denied any long-standing diarrhea, constipation, obstipation, tenesmus, or rectal bleeding. She was given IVF, MS, & Zofran in the ER. The analgesics helped, but "seemed to wear off before the next dose". She had minimal symptoms of GERD, without any odynophagia, dysphagia, hematemesis, early satiety, or melena. She denied any NSAID use, Sulfa meds, or HCTZ. She denied any new meds or herbal meds. Aside from her mother having GERD, she denied any FHx of additional GI disease, GBD, PUD, inherited pancreatitis, GI Ca, or inherited liver disease. One of her brothers had a liver transplant for Hep C. 10/15/12: *TG 44. 09/25/13: Hep A Ab, Hep Bs Ag, Hep B core Ab, & Hep C Ab- all negative. 04/01/14: normal CA 19-9: 15 (< 34). 08/21/17: Admission labs 12:36 a.m.- WBC 8.4 (68S/3B/26L/2M/1E), H/H 14/42.3, MCV 93.5, RDW 13.7, PLT 260, glucose 97, BUN/Cr 11/0.6, GFR > 60, Na 143, K 4.4, HCO3 25, AG 14, amylase 77, minimal lipase 449, Ca 9.7, albumin 4.6, globulin 3.5, TBil 0.4, alk phos 115, AST 32, ALT 37, troponin < 0.01 08/21/17: 8:45 a.m.- WBC 12.5, H/H 12.2/36.1, PLT- clumped, BUN/Cr 9/0.4, GFR > 60, na 136, K 4.6, HCO3 20, AG 11, albumin 3.4, globulin 2.9, TBil 0.3, DBil 0.3 , alk phos 96, *AST 97, *ALT 75, troponin < 0.01. 08/21/17: U/A- clear straw, 1.015, 5.5, micro-neg; neg nitrite, neg esterase 08/21/17: EKG- NSR @ 88, normal axis, normal intervals, mild NSST. 08/21/17: CT ABD & PELVIS W IV CONTRAST- Stable size of the known large 4.2 x 3.4 cm cyst within the pancreatic body ( similar in size to abdominal MRI of 01/04/17, *although the patient claimed it was drained at [facility] in 01/2017). There are new peripancreatic inflammatory changes adjacent to the pancreatic body and tail with parenchymal heterogeneity raising the concern for acute pancreatitis for which correlation with serum amylase/lipase is recommended. Patent splenic vein. Post-CCKY. Extensive aorto-iliac ASHD, without AAA. Moderate HH. Normal AP. No free air, ascites, or adenopathy. Fibroid uterus. Small fat containing umbilical hernia. 08/21/17: US ABDOMEN COMPLETE- 1. The 4.2 x 4.2 x 3.5 cm cyst within the pancreatic body has a simple appearance. 2. Mild peripancreatic edema observed on the recent CT imaging exam (suggestive of mild pancreatitis) is not detected with ultrasound. *Unsure as to exact etiology of large pancreatic cyst, previously drained (FNA results not scanned into [facility], but reportedly benign). ? Sequela of prior pancreatitis/probable pseudocyst > IPMN. Admission 08/21/17: CT findings without significant change in dimensions of pancreatic cyst, since 01/04/17: MRI abdomen with & w/o gadolinium, *although the patient claimed it was drained at [facility] by Dr. Lee in 01/2017. The patient had 1 Grave sign by [place] criteria on admission, namely advanced age, but no LDH was sent. She had 1 Grave sign by [facility] criteria on admission, namely advanced age, but no CXR was obtained to r/o pleural effusions. *SUGGEST: NPO. IVF with Lactated Ringers at 200 cc/hr for now. Watch for hemoconcentration (i.e.- rising BUN and/or HCT), despite IVF, which would be a poor prognostic sign. Strict I/O's. Supplemental O2 as needed. Analgesics as needed. Zofran as needed. Try to get GI records from Dr. Lee at [facility], regarding most recent drainage of "pseudocyst" in 01/2017. Add LDH to admit labs. Check CXR. Get CRP in 1-2 days for prognostic purposes. Consider getting IgG4 level (doubt autoimmune pancreatitis) and TG level (previously normal). Depending on [facility] records, consideration for repeat outpatient EUS there. DVT prophylaxis. Further GI recommendations to follow, depending on clinical course. Dr. Stacia Blanchard will resume the patient's GI care tomorrow. Problem List: 1. Pancreatitis 2. Abdominal pain 3. Nausea and vomiting 4. Pseudocyst of pancreas Copies To: Julia HICKS,Golden; Jocelynn HICKS,Qing; Lenore HICKS,Sean Cristina; Santo HICKS, Vin Kruger; David HICKS,Victorina Consult Acknowledgment - Thank you for your consult request.
[2017-08-22 05:59] VITALS: BP 126/64
--- NOTE | 2017-08-22 07:15 | PN- Housestaff ---
Ramya Cabrales 08/22/17 0714: Subjective Follow-up For: pancreatitis pseudocyct Complaints: pain scale (0-10) (severe abdominal pain), severe abdominal pain Subjective: pt is complaining pain control on current pain med regimen. No appetite and very poor po intake. able to ambulate, movement worsens the pain. VSS + IV hydration w/ RL OV line infiltrated last night; currently its OK - [place]ingo Review of Systems Constitutional: Reports: see HPI. Gastrointestinal: Reports: abdominal pain, bloating. Denies: constipation, diarrhea, distention, bowel incontinence, melena, nausea, bloody stool, changes in stool. Objective Last 24 Hrs of Vital Signs/I&O Vital Signs Date Time Temp Pulse Resp B/P B/P Pulse O2 O2 Flow FiO2 Mean Ox Delivery Rate 08/22 1410 98.1 91 20 120/70 96 08/22 0559 98.4 79 20 126/64 94 Room Air 08/21 2300 98.3 79 20 110/60 96 Room Air Intake & Output 08/22 1600 08/22 0800 08/22 0000 Intake Total 1000 1340 Output Total 480 400 Balance -717 912 5477 Intake, IV 1000 1200 Intake, Oral 140 Output, Urine 480 400 Physical Exam General Appearance: Alert, Oriented X3, Cooperative, Mild Distress HEENT: PERRLA, MM is are Cardiovascular: Normal S1, Normal S2, No Murmurs Abdomen: Soft, upper (hypogastric, band-like abdominal pain) No gaurding No rebound tenderness Neurological: Normal Speech Extremities: No Edema, METALIZER is wnl Current Medications: Current Medications Sig/Aleta Start time Last Medication Dose Route Stop Time Status Admin Acetaminophen 650 MG Q8P PRN 08/21 0500 AC PO Aspirin Buffered 81 MG DAILY 08/21 1000 AC PO Heparin Sodium 5,000 UNIT Q8 08/21 0600 AC 08/22 (Porcine) SC 1326 Hydromorphone HCl 0.4 MG Q3P PRN 08/22 0900 AC 08/22 IV 1324 Hydromorphone HCl 0.4 MG ONCE ONE 08/22 0900 DC 08/22 IV PUSH 08/22 0901 0923 Hydromorphone HCl 0.4 MG Q4P PRN 08/21 1130 DC 08/22 IV 0443 Lactated Ringer's 1,000 ML .Q5H 08/22 0845 AC 08/22 IV 08/22 2344 1349 Lactated Ringer's 1,000 ML Q10H 08/22 0500 DC 08/22 IV 0501 Lactated Ringer's 1,000 ML Q8H 08/21 0500 DC 08/21 IV 08/21 1759 2013 Levothyroxine Sodium 0.1 MG DAILY AC 08/21 0700 AC 08/22 PO 0501 Morphine Sulfate 2 MG Q6P PRN 08/21 0445 DC 08/22 IV 0622 Ondansetron HCl 4 MG ONCE ONE 08/21 1515 DC 08/21 IV 08/21 1516 1531 Tramadol HCl 50 MG Q6 PRN 08/22 0900 AC PO Last 24 Hrs of Lab/Apolinar Results Last 24 Hrs of Labs/Mics: Laboratory Tests 08/22/17 0854: Anion Gap 9, Estimated GFR > 60, BUN/Creatinine Ratio 22.0, Lactate Dehydrogenase 561, CBC w Diff NO MAN DIFF REQ, RBC 3.64 L, MCV 92.7, MCH 31.2 H, RDW 13.4, MPV 9.0, Gran % 71.4, Lymphocytes % 21.5, Monocytes % 3.9, Eosinophils % 2.6, Basophils % 0.6, Absolute Granulocytes 9.4 H, Absolute Lymphocytes 2.8, Absolute Monocytes 0.5, Absolute Eosinophils 0.3, Absolute Basophils 0.1, PUBS MCHC 33.7 Lines/Diet/Fluids Fluids/Infusions: RL Assessment/Plan Assessment: 62 years old woman Problem List: 1. ac pancreatitis 2. h/o hypothyroidism-shingles 3. Pancreatitis 4. Abdominal pain 5. Nausea and vomiting 6. Pseudocyst of pancreas Pain Ratin Pain Location: abdomen LUQ Pain Goal: Remain pain free Pain Plan: pain pathway Tomorrow's Labs & Rationales: cbc bep acute pancreatitis Amadou Cooperclaribel 08/22/17 1412: Attending MD Review Statement Attending Statement Attending MD Statement: examined this patient, discuss w/resident/PA/WINDOWS TECHNICAL SPECIALIST, agreed w/resident/PA/WINDOWS TECHNICAL SPECIALIST, reviewed EMR data (avail), discussed with nursing, discussed with case mgmt Attending Assessment/Plan: pt admitted with acute panceratitis and pancreatic pseudocyst. Slightly worsening leukocytosis. will d/w GI the care plan as pt is having recurrent issues with pseudocyst.
[2017-08-22 09:48] LABS: ABSOLUTE BASOPHIL COUNT 0.1 /CUMM (0.0-0.2); ABSOLUTE EOSINOPHIL COUNT 0.3 /CUMM (0.0-0.7); ABSOLUTE GRANULOCYTE CT 9.4 /CUMM (1.4-6.5); ABSOLUTE LYMPH COUNT 2.8 /CUMM (1.2-3.4); ABSOLUTE MONOCYTE COUNT 0.5 /CUMM (0.10-0.60); BASOPHIL % 0.6 % (0.0-2.0); EOSINOPHIL % 2.6 % (0-5); GRANULOCYTE % 71.4 % (42.2-75.2); HEMATOCRIT 33.8 % (37-47); MEAN CORPUSCULAR HGB 31.2 PG (27.0-31.0); MEAN CORPUSCULAR HGB CONC 33.7 G/DL (33.0-37.0); MEAN CORPUSCULAR VOLUME 92.7 FL (81.0-99.0); PLATELET COUNT 273 /CUMM (130-400); RBC DISTRIBUTION WIDTH 13.4 % (11.5-14.5); RED BLOOD CELL CT 3.64 /CUMM (4.20-5.40); WHITE BLOOD CELL COUNT 13.1 /CUMM (4.8-10.8)
--- NOTE | 2017-08-22 13:05 | RADIOLOGY REPORT ---
EXAMINATION: XR CHEST CLINICAL INFORMATION: Pancreatitis. Pleural effusion? COMPARISON: CXR of 10/18/2012 TECHNIQUE: 2 views of the chest were obtained. FINDINGS: Lungs are well expanded and clear. Minimal atelectasis in lung bases. No pulmonary consolidation, edema or pleural effusion. Cardiac silhouette is normal in size and the mediastinal and hilar contours are normal. A punctate metallic density projecting over the region of the left clavicle probably represents an artifact on the frontal radiograph. The bones are unremarkable. IMPRESSION: 1. Minimal bibasilar atelectasis. 2. No pulmonary edema or pleural effusion.
[2017-08-22 14:10] VITALS: BP 120/70
--- NOTE | 2017-08-22 20:54 | PN- Gastroenterology ---
Assessment/Plan Assessment/Recommendations: Acute pancreatitis, improved. Initial intubation out of proportion to imaging findings. Pancreatic cystic lesion, presumably related to the acute pancreatitis ( causative) Recommendations * Begin clear liquids in the morning. * Continue parenteral Dilaudid * Will need to obtain records from [place], and discuss with Dr. Lee. Subjective Subjective: Pain improved, and now limited to the left upper quadrant. No back pain. Nausea has resolved, no vomiting. Pain more controlled with Dilaudid every 3 hours. Objective Vital Signs and I&Os Vital Signs Date Time Temp Pulse Resp B/P B/P Pulse O2 O2 Flow FiO2 Mean Ox Delivery Rate 08/22 1410 98.1 91 20 120/70 96 08/22 0559 98.4 79 20 126/64 94 Room Air 08/21 2300 98.3 79 20 110/60 96 Room Air Intake & Output 08/22 1600 08/22 0400 08/21 1600 08/21 0400 08/20 1600 08/20 0400 Intake Total 1000 4413 063 1728 Output Total 880 Balance 120 3558 748 8196 Intake, IV 1000 9001 542 4905 Intake, Oral 140 0 Output, Urine 880 Patient 165 lb 165 lb Weight Weight Reported by Patient Reported by Patient Measurement Method Physical Exam: Alert and oriented, normal cognition. Sclera anicteric. Mucous membrane is moist. Normal skin turgor. No rash or skin lesion. Abdomen is soft and nondistended with normal bowel sounds; there is tenderness to moderate palpation of left upper quadrant, without mass or fullness. Extremities without edema. Normal pulses. Current Medications: Current Medications Sig/Aleta Start time Last Medication Dose Route Stop Time Status Admin Acetaminophen 650 MG Q8P PRN 08/21 0500 AC PO Aspirin Buffered 81 MG DAILY 08/21 1000 AC PO Heparin Sodium 5,000 UNIT Q8 08/21 0600 AC 08/22 (Porcine) SC 1326 Hydromorphone HCl 0.4 MG Q3P PRN 08/22 0900 AC 08/22 IV 1758 Hydromorphone HCl 0.4 MG ONCE ONE 08/22 0900 DC 08/22 IV PUSH 08/22 0901 0923 Hydromorphone HCl 0.4 MG Q4P PRN 08/21 1130 DC 08/22 IV 0443 Lactated Ringer's 1,000 ML .Q5H 08/22 0845 AC 08/22 IV 12/28 2344 2039 Lactated Ringer's 1,000 ML Q10H 08/22 0500 DC 08/22 IV 0501 Levothyroxine Sodium 0.1 MG DAILY AC 08/21 0700 AC 08/22 PO 0501 Morphine Sulfate 2 MG Q6P PRN 08/21 0445 DC 08/22 IV 0622 Tramadol HCl 50 MG Q6 PRN 08/22 0900 AC PO Results Pertinent Lab Results: Laboratory Tests 08/22 08/21 0854 0845 Chemistry Sodium (137 - 145 mmol/L) 137 136 L Potassium (3.5 - 5.1 mmol/L) 4.0 4.6 Chloride (98 - 107 mmol/L) 103 105 Carbon Dioxide (22 - 30 mmol/L) 25 20 L Anion Gap (5 - 16) 9 11 BUN (7 - 17 mg/dL) 11 9 Creatinine (0.5 - 1.0 mg/dL) 0.5 0.4 L Estimated GFR (>60 ml/min) > 60 > 60 BUN/Creatinine Ratio (7 - 25 %) 22.0 22.5 Total Bilirubin (0.2 - 1.3 mg/dL) 0.3 Direct Bilirubin (< 0.4 mg/dL) 0.3 AST (14 - 36 U/L) 97 H ALT (9 - 52 U/L) 75 H Alkaline Phosphatase (<127 U/L) 96 Lactate Dehydrogenase (313 - 618 U/L) 561 Troponin I (< 0.11 ng/ml) < 0.01 Total Protein (6.3 - 8.2 g/dL) 6.3 Albumin (3.5 - 5.0 g/dL) 3.4 L Hematology CBC w Diff NO MAN DIFF REQ NO MAN DIFF REQ WBC (4.8 - 10.8 /CUMM) 13.1 H 12.5 H RBC (4.20 - 5.40 /CUMM) 3.64 L 3.87 L Hgb (12.0 - 16.0 G/DL) 11.4 L 12.2 Hct (37 - 47 %) 33.8 L 36.1 L MCV (81.0 - 99.0 FL) 92.7 93.3 MCH (27.0 - 31.0 PG) 31.2 H 31.5 H RDW (11.5 - 14.5 %) 13.4 13.2 Plt Count (130 - 400 /CUMM) 273 MPV (7.4 - 10.4 FL) 9.0 Gran % (42.2 - 75.2 %) 71.4 92.7 H Lymphocytes % (20.5 - 51.1 %) 21.5 4.7 L Monocytes % (1.7 - 9.3 %) 3.9 2.4 Eosinophils % (0 - 5 %) 2.6 0.2 Basophils % (0.0 - 2.0 %) 0.6 0 Absolute Granulocytes (1.4 - 6.5 /CUMM) 9.4 H 11.6 H Absolute Lymphocytes (1.2 - 3.4 /CUMM) 2.8 0.6 L Absolute Monocytes (0.10 - 0.60 /CUMM) 0.5 0.3 Absolute Eosinophils (0.0 - 0.7 /CUMM) 0.3 0 Absolute Basophils (0.0 - 0.2 /CUMM) 0.1 0 PUBS MCHC (33.0 - 37.0 G/DL) 33.7 33.8 08/21 08/21 0600 0219 Chemistry Troponin I Cancelled Urines Urine Color (YEL,AMB,STR) STRAW Urine Clarity (CLEAR) CLEAR Urine pH (5.0 - 8.0) 5.5 Ur Specific [place] (1.001 - 1.035) 1.015 Urine Protein (NEG,<30 MG/DL) NEG Urine Ketones (NEG) NEG Urine Nitrite (NEG) NEG Urine Bilirubin (NEG) NEG Urine Urobilinogen (0.1 - 1.0 EU/dl) 0.2 Ur Leukocyte Esterase (NEG) NEG Ur Microscopic EXAM NOT REQUIRED Urine Hemoglobin (NEG) NEG Urine Glucose (N MG/DL) NEG 08/21 08/21 0036 0033 Chemistry Sodium (137 - 145 mmol/L) 143 Potassium (3.5 - 5.1 mmol/L) 4.4 Chloride (98 - 107 mmol/L) 104 Carbon Dioxide (22 - 30 mmol/L) 25 Anion Gap (5 - 16) 14 BUN (7 - 17 mg/dL) 11 Creatinine (0.5 - 1.0 mg/dL) 0.6 Estimated GFR (>60 ml/min) > 60 BUN/Creatinine Ratio (7 - 25 %) 18.3 Glucose (65 - 99 mg/dL) 97 Calcium (8.4 - 10.2 mg/dL) 9.7 Total Bilirubin (0.2 - 1.3 mg/dL) 0.4 AST (14 - 36 U/L) 32 ALT (9 - 52 U/L) 37 Alkaline Phosphatase (<127 U/L) 115 Troponin I (< 0.11 ng/ml) < 0.01 Total Protein (6.3 - 8.2 g/dL) 8.1 Albumin (3.5 - 5.0 g/dL) 4.6 Globulin (1.9 - 4.2 gm/dL) 3.5 Albumin/Globulin Ratio (1.1 - 2.2 %) 1.3 Amylase (30 - 110 U/L) 77 Lipase (23 - 300 U/L) 449 H Hematology CBC w Diff MAN DIFF ORDERED WBC (4.8 - 10.8 /CUMM) 8.4 RBC (4.20 - 5.40 /CUMM) 4.52 Hgb (12.0 - 16.0 G/DL) 14.0 Hct (37 - 47 %) 42.3 MCV (81.0 - 99.0 FL) 93.5 MCH (27.0 - 31.0 PG) 31.0 RDW (11.5 - 14.5 %) 13.7 Plt Count (130 - 400 /CUMM) 260 MPV (7.4 - 10.4 FL) 8.9 Gran % (42.2 - 75.2 %) 60.0 Lymphocytes % (20.5 - 51.1 %) 18.1 L Monocytes % (1.7 - 9.3 %) 20.9 H Eosinophils % (0 - 5 %) 0.7 Basophils % (0.0 - 2.0 %) 0.3 Absolute Granulocytes (1.4 - 6.5 /CUMM) 5.0 Segmented Neutrophils (42.2 - 75.2 %) 68 Band Neutrophils (0.0 - 5.0 %) 3 Absolute Lymphocytes (1.2 - 3.4 /CUMM) 1.5 Lymphocytes (20.5 - 51.1 %) 26 Monocytes (1.7 - 9.3 %) 2 Absolute Monocytes (0.10 - 0.60 /CUMM) 1.8 H Eosinophils (0 - 5.0 %) 1 Absolute Eosinophils (0.0 - 0.7 /CUMM) 0.1 Absolute Basophils (0.0 - 0.2 /CUMM) 0 Platelet Estimate (ADEQUATE) ADEQUATE Polychromasia 1+ Poikilocytosis 1+ Ovalocytes 1+ PUBS MCHC (33.0 - 37.0 G/DL) 33.1 Other Body Source Fld Total RBCs Counted (%) 100 Urines Urine Osmolality (300 - 1000 MOSM/KG) 432 Ur Random Creatinine (mg/dL) 31.5 Ur Random Sodium (30 - 90 mmol/L) 156 H Ur Random Potassium (mmol/L) 22.9 Fraction Sodium Excret (<1% %) 1.5 H
[2017-08-22 23:14] VITALS: BP 132/80
[2017-08-23 08:23] VITALS: BP 120/76
[2017-08-23 08:35] LABS: ABSOLUTE BASOPHIL COUNT 0 /CUMM (0.0-0.2); ABSOLUTE EOSINOPHIL COUNT 0.3 /CUMM (0.0-0.7); ABSOLUTE GRANULOCYTE CT 6.7 /CUMM (1.4-6.5); ABSOLUTE MONOCYTE COUNT 0.6 /CUMM (0.10-0.60); BASOPHIL % 0.4 % (0.0-2.0); EOSINOPHIL % 2.6 % (0-5); GRANULOCYTE % 63.4 % (42.2-75.2); HEMATOCRIT 30.6 % (37-47); MEAN CORPUSCULAR HGB 31.4 PG (27.0-31.0); MEAN CORPUSCULAR HGB CONC 33.5 G/DL (33.0-37.0); MEAN CORPUSCULAR VOLUME 93.7 FL (81.0-99.0); MEAN PLATELET VOLUME 9.3 FL (7.4-10.4); PLATELET COUNT 235 /CUMM (130-400); RBC DISTRIBUTION WIDTH 13.4 % (11.5-14.5); RED BLOOD CELL CT 3.26 /CUMM (4.20-5.40); WHITE BLOOD CELL COUNT 10.6 /CUMM (4.8-10.8)
--- NOTE | 2017-08-23 10:04 | PN- Housestaff ---
See Addendum Subjective Follow-up For: pancreatic pseudocyst pancreatitis Complaints: abdominal pain Subjective: patient was visited and examined today. She is complaining of 5-ou of 10 LUQ, band like, distribution, sharp, not acoompanied w/ N/V. Starts clear liquid as up today. During interview she looks slightly lethargic but adamantly belived that her pain regimen should at least remains the same, if its not increased. I explained the side eefects of opioids and the risk of respiratory failure and dependency, however, I found her unwilling to negotiate pain regimen. Review of Systems Constitutional: Reports: see HPI. Cardiovascular: Reports: no symptoms. Gastrointestinal: Reports: abdominal pain, bloating. Denies: constipation, diarrhea, distention, bowel incontinence, melena, nausea, bloody stool, changes in stool, vomiting, steatorrhea. Genitourinary: Reports: no symptoms. Musculoskeletal: Reports: no symptoms. Objective Last 24 Hrs of Vital Signs/I&O Vital Signs Date Time Temp Pulse Resp B/P B/P Pulse O2 O2 Flow FiO2 Mean Ox Delivery Rate 08/23 0823 97.7 73 20 120/76 95 Room Air 08/22 2314 98.1 70 20 132/80 92 Room Air 08/22 1410 98.1 91 20 120/70 96 Intake & Output 08/23 1600 08/23 0800 08/23 0000 Intake Total 1200 800 Output Total Balance 1200 800 Intake, IV 1200 800 Physical Exam General Appearance: Alert, Oriented X3, Cooperative, No Acute Distress, lethargic Cardiovascular: Normal S1, Normal S2, No Murmurs Abdomen: Soft, mild tenderness of left upper and hypogastric region , no RT Neurological: Normal Speech Extremities: No Edema Current Medications: Current Medications Sig/Aleta Start time Last Medication Dose Route Stop Time Status Admin Acetaminophen 650 MG Q8P PRN 08/21 0500 AC PO Aspirin Buffered 81 MG DAILY 08/21 1000 AC 08/23 PO 1005 Heparin Sodium 5,000 UNIT Q8 08/21 0600 AC 08/23 (Porcine) SC 0608 Hydromorphone HCl 0.4 MG Q3P PRN 08/22 0900 AC 08/23 IV 1004 Lactated Ringer's 1,000 ML ONCE ONE 08/23 1115 AC 08/23 IV 08/23 2114 1207 Lactated Ringer's 1,000 ML .Q5H 08/22 0845 DC 08/22 IV 08/22 5091 4862 Levothyroxine Sodium 0.1 MG DAILY AC 08/21 0700 AC 08/23 PO 0608 Potassium Chloride 40 MEQ ONCE ONE 08/23 1115 DC 08/23 PO 08/23 1116 1206 Tramadol HCl 50 MG Q6 PRN 08/22 0900 AC PO Last 24 Hrs of Lab/Apolinar Results Last 24 Hrs of Labs/Mics: Laboratory Tests 08/23/17 0740: Anion Gap 11, Estimated GFR > 60, BUN/Creatinine Ratio 20.0, Calcium 8.5, C- Reactive Prot, Quant > 9.0 H, CBC w Diff NO MAN DIFF REQ, RBC 3.26 L, MCV 93.7 , MCH 31.4 H, RDW 13.4, MPV 9.3, Gran % 63.4, Lymphocytes % 28.2, Monocytes % 5.4, Eosinophils % 2.6, Basophils % 0.4, Absolute Granulocytes 6.7 H, Absolute Lymphocytes 3.0, Absolute Monocytes 0.6, Absolute Eosinophils 0.3, Absolute Basophils 0, PUBS MCHC 33.5 Lines/Diet/Fluids Fluids/Infusions: none Assessment/Plan Assessment: 62 years old woman was admitted for recurrent, symptomatic pancreatic pseudocyst ( s/p x2 drainage; lates in 2016 at [facility]) was admitted for acute pancreatitis and what it seems to be relapse of her symptomatic pseudocyst. Pertienet Data H&H: 10.3 and 30 decreased from 11.4 and 33 respectively Calcium within normal limits sodium 138, potassium 3.5, creatinine 0.4, BUN 8 List of active problems #1 acute pancreatitis: CRP more than 9; no evidence of hemoconcentration; patient's pain and clinical picture is totality has improved; she has appetite #2 recurrent, symptomatic, pancreatic pseudocyst Plan * Continue pain management with IV Dilaudid; avoid morphine * Additional IV hydration (1000 ml of Ringer lactate) * Starts clear liquid diet and advance per tolerance * Obtain records from [facility] * Appreciate further GI recommendation; consideration for surgical intervention to remove pseudocyst and surrounding tissues as discussed with the patient and family by Dr. Santo Banuelos MD * Hypokalemia possibly due to poor oral intake; K-Mojgan 40 mEq once [employer] Proper pain management Full code Problem List: 1. Pancreatitis 2. Pseudocyst of pancreas Pain Ratin Pain Location: Refer to HPI Pain Goal: Pain 4 or less Pain Plan: Potential Tylenol to 04 mg every 3 hours Tomorrow's Labs & Rationales: BEP DVT/Prophylaxis: pharmacological
[2017-08-23 14:21] VITALS: BP 110/80
--- NOTE | 2017-08-23 18:36 | PN- Gastroenterology ---
Assessment/Plan Assessment/Recommendations: Acute pancreatitis, continuing to improve. Pancreatic cystic lesion, presumably related to the acute pancreatitis ( causative) Recommendations * Advance to low fat diet tomorrow. * Continue parenteral Dilaudid, but offer oral tramadol first. * Will need to obtain records from [place], and discuss with Dr. Lee. This will be done, presumably, as an outpatient after discharge. Subjective Subjective: Pain improved. Waves of nausea but no vomiting. Tolerating clear liquids. No fever. Objective Vital Signs and I&Os Vital Signs Date Time Temp Pulse Resp B/P B/P Pulse O2 O2 Flow FiO2 Mean Ox Delivery Rate 08/23 1421 98.8 91 20 110/80 98 08/23 0823 97.7 73 20 120/76 95 Room Air 08/22 2314 98.1 70 20 132/80 92 Room Air Intake & Output 08/23 1600 08/23 0400 08/22 1600 08/22 0400 08/21 1600 08/21 0400 Intake Total 4272 267 2757 2565 419 6754 Output Total 300 880 Balance 900 999 103 9953 500 1000 Intake, IV 2885 024 2817 7282 214 2574 Intake, Oral 140 0 Output, Urine 300 880 Patient 165 lb 165 lb Weight Weight Reported by Patient Reported by Patient Measurement Method Physical Exam: Alert and oriented without distress. Sclera anicteric. Abdomen is soft and nondistended, and with tenderness in the left upper quadrant to deep palpation. Current Medications: Current Medications Sig/Aleta Start time Last Medication Dose Route Stop Time Status Admin Acetaminophen 650 MG Q8P PRN 08/21 0500 AC PO Aspirin Buffered 81 MG DAILY 08/21 1000 AC 08/23 PO 1005 Heparin Sodium 5,000 UNIT Q8 08/21 0600 AC 08/23 (Porcine) SC 1407 Hydromorphone HCl 0.4 MG Q3P PRN 08/22 0900 AC 08/23 IV 1735 Lactated Ringer's 1,000 ML ONCE ONE 08/23 1115 AC 08/23 IV 08/23 2114 1207 Lactated Ringer's 1,000 ML .Q5H 08/22 0845 DC 08/22 IV 08/22 2344 2039 Levothyroxine Sodium 0.1 MG DAILY AC 08/21 0700 AC 08/23 PO 0608 Potassium Chloride 40 MEQ ONCE ONE 08/23 1115 DC 08/23 PO 08/23 1116 1206 Tramadol HCl 50 MG Q6 PRN 08/22 0900 AC PO Results Pertinent Lab Results: Laboratory Tests 08/23 08/22 0740 0854 Chemistry Sodium (137 - 145 mmol/L) 138 137 Potassium (3.5 - 5.1 mmol/L) 3.5 4.0 Chloride (98 - 107 mmol/L) 103 103 Carbon Dioxide (22 - 30 mmol/L) 24 25 Anion Gap (5 - 16) 11 9 BUN (7 - 17 mg/dL) 8 11 Creatinine (0.5 - 1.0 mg/dL) 0.4 L 0.5 Estimated GFR (>60 ml/min) > 60 > 60 BUN/Creatinine Ratio (7 - 25 %) 20.0 22.0 Calcium (8.4 - 10.2 mg/dL) 8.5 Lactate Dehydrogenase (313 - 618 U/L) 561 C-Reactive Prot, Quant (<1.0 mg/dL) > 9.0 H Hematology CBC w Diff NO MAN DIFF REQ NO MAN DIFF REQ WBC (4.8 - 10.8 /CUMM) 10.6 13.1 H RBC (4.20 - 5.40 /CUMM) 3.26 L 3.64 L Hgb (12.0 - 16.0 G/DL) 10.3 L 11.4 L Hct (37 - 47 %) 30.6 L 33.8 L MCV (81.0 - 99.0 FL) 93.7 92.7 MCH (27.0 - 31.0 PG) 31.4 H 31.2 H RDW (11.5 - 14.5 %) 13.4 13.4 Plt Count (130 - 400 /CUMM) 235 273 MPV (7.4 - 10.4 FL) 9.3 9.0 Gran % (42.2 - 75.2 %) 63.4 71.4 Lymphocytes % (20.5 - 51.1 %) 28.2 21.5 Monocytes % (1.7 - 9.3 %) 5.4 3.9 Eosinophils % (0 - 5 %) 2.6 2.6 Basophils % (0.0 - 2.0 %) 0.4 0.6 Absolute Granulocytes (1.4 - 6.5 /CUMM) 6.7 H 9.4 H Absolute Lymphocytes (1.2 - 3.4 /CUMM) 3.0 2.8 Absolute Monocytes (0.10 - 0.60 /CUMM) 0.6 0.5 Absolute Eosinophils (0.0 - 0.7 /CUMM) 0.3 0.3 Absolute Basophils (0.0 - 0.2 /CUMM) 0 0.1 PUBS MCHC (33.0 - 37.0 G/DL) 33.5 33.7 08/21 08/21 0845 0600 Chemistry Sodium (137 - 145 mmol/L) 136 L Potassium (3.5 - 5.1 mmol/L) 4.6 Chloride (98 - 107 mmol/L) 105 Carbon Dioxide (22 - 30 mmol/L) 20 L Anion Gap (5 - 16) 11 BUN (7 - 17 mg/dL) 9 Creatinine (0.5 - 1.0 mg/dL) 0.4 L Estimated GFR (>60 ml/min) > 60 BUN/Creatinine Ratio (7 - 25 %) 22.5 Total Bilirubin (0.2 - 1.3 mg/dL) 0.3 Direct Bilirubin (< 0.4 mg/dL) 0.3 AST (14 - 36 U/L) 97 H ALT (9 - 52 U/L) 75 H Alkaline Phosphatase (<127 U/L) 96 Troponin I (< 0.11 ng/ml) < 0.01 Cancelled Total Protein (6.3 - 8.2 g/dL) 6.3 Albumin (3.5 - 5.0 g/dL) 3.4 L Hematology CBC w Diff NO MAN DIFF REQ WBC (4.8 - 10.8 /CUMM) 12.5 H RBC (4.20 - 5.40 /CUMM) 3.87 L Hgb (12.0 - 16.0 G/DL) 12.2 Hct (37 - 47 %) 36.1 L MCV (81.0 - 99.0 FL) 93.3 MCH (27.0 - 31.0 PG) 31.5 H RDW (11.5 - 14.5 %) 13.2 Plt Count (/CUMM) Gran % (42.2 - 75.2 %) 92.7 H Lymphocytes % (20.5 - 51.1 %) 4.7 L Monocytes % (1.7 - 9.3 %) 2.4 Eosinophils % (0 - 5 %) 0.2 Basophils % (0.0 - 2.0 %) 0 Absolute Granulocytes (1.4 - 6.5 /CUMM) 11.6 H Absolute Lymphocytes (1.2 - 3.4 /CUMM) 0.6 L Absolute Monocytes (0.10 - 0.60 /CUMM) 0.3 Absolute Eosinophils (0.0 - 0.7 /CUMM) 0 Absolute Basophils (0.0 - 0.2 /CUMM) 0 PUBS MCHC (33.0 - 37.0 G/DL) 33.8 08/21 08/21 0219 0036 Chemistry Sodium (137 - 145 mmol/L) 143 Potassium (3.5 - 5.1 mmol/L) 4.4 Chloride (98 - 107 mmol/L) 104 Carbon Dioxide (22 - 30 mmol/L) 25 Anion Gap (5 - 16) 14 BUN (7 - 17 mg/dL) 11 Creatinine (0.5 - 1.0 mg/dL) 0.6 Estimated GFR (>60 ml/min) > 60 BUN/Creatinine Ratio (7 - 25 %) 18.3 Glucose (65 - 99 mg/dL) 97 Calcium (8.4 - 10.2 mg/dL) 9.7 Total Bilirubin (0.2 - 1.3 mg/dL) 0.4 AST (14 - 36 U/L) 32 ALT (9 - 52 U/L) 37 Alkaline Phosphatase (<127 U/L) 115 Troponin I (< 0.11 ng/ml) < 0.01 Total Protein (6.3 - 8.2 g/dL) 8.1 Albumin (3.5 - 5.0 g/dL) 4.6 Globulin (1.9 - 4.2 gm/dL) 3.5 Albumin/Globulin Ratio (1.1 - 2.2 %) 1.3 Amylase (30 - 110 U/L) 77 Lipase (23 - 300 U/L) 449 H Hematology CBC w Diff MAN DIFF ORDERED WBC (4.8 - 10.8 /CUMM) 8.4 RBC (4.20 - 5.40 /CUMM) 4.52 Hgb (12.0 - 16.0 G/DL) 14.0 Hct (37 - 47 %) 42.3 MCV (81.0 - 99.0 FL) 93.5 MCH (27.0 - 31.0 PG) 31.0 RDW (11.5 - 14.5 %) 13.7 Plt Count (130 - 400 /CUMM) 260 MPV (7.4 - 10.4 FL) 8.9 Gran % (42.2 - 75.2 %) 60.0 Lymphocytes % (20.5 - 51.1 %) 18.1 L Monocytes % (1.7 - 9.3 %) 20.9 H Eosinophils % (0 - 5 %) 0.7 Basophils % (0.0 - 2.0 %) 0.3 Absolute Granulocytes (1.4 - 6.5 /CUMM) 5.0 Segmented Neutrophils (42.2 - 75.2 %) 68 Band Neutrophils (0.0 - 5.0 %) 3 Absolute Lymphocytes (1.2 - 3.4 /CUMM) 1.5 Lymphocytes (20.5 - 51.1 %) 26 Monocytes (1.7 - 9.3 %) 2 Absolute Monocytes (0.10 - 0.60 /CUMM) 1.8 H Eosinophils (0 - 5.0 %) 1 Absolute Eosinophils (0.0 - 0.7 /CUMM) 0.1 Absolute Basophils (0.0 - 0.2 /CUMM) 0 Platelet Estimate (ADEQUATE) ADEQUATE Polychromasia 1+ Poikilocytosis 1+ Ovalocytes 1+ PUBS MCHC (33.0 - 37.0 G/DL) 33.1 Other Body Source Fld Total RBCs Counted (%) 100 Urines Urine Color (YEL,AMB,STR) STRAW Urine Clarity (CLEAR) CLEAR Urine pH (5.0 - 8.0) 5.5 Ur Specific [place] (1.001 - 1.035) 1.015 Urine Protein (NEG,<30 MG/DL) NEG Urine Ketones (NEG) NEG Urine Nitrite (NEG) NEG Urine Bilirubin (NEG) NEG Urine Urobilinogen (0.1 - 1.0 EU/dl) 0.2 Ur Leukocyte Esterase (NEG) NEG Ur Microscopic EXAM NOT REQUIRED Urine Hemoglobin (NEG) NEG Urine Glucose (N MG/DL) NEG 08/21 0033 Urines Urine Osmolality (300 - 1000 MOSM/KG) 432 Ur Random Creatinine (mg/dL) 31.5 Ur Random Sodium (30 - 90 mmol/L) 156 H Ur Random Potassium (mmol/L) 22.9 Fraction Sodium Excret (<1% %) 1.5 H
[2017-08-23 23:29] VITALS: BP 132/74
--- NOTE | 2017-08-24 04:36 | PN- Housestaff ---
Ramya Cabrales 08/24/17 0435: Subjective Follow-up For: pancreatitis Pancreas pseudocyst Subjective: no complains; pain is subsided; she did not required IV pain medication wants to leave. Review of Systems Constitutional: Reports: see HPI. Objective Last 24 Hrs of Vital Signs/I&O Vital Signs Date Time Temp Pulse Resp B/P B/P Pulse O2 O2 Flow FiO2 Mean Ox Delivery Rate 08/24 0647 98.0 64 16 132/84 94 Room Air 08/23 2329 97.8 72 20 132/74 96 08/23 1421 98.8 91 20 110/80 98 Intake & Output 08/24 1600 08/24 0800 08/24 0000 Intake Total 200 1200 Output Total Balance 200 1200 Intake, IV 800 Intake, Oral 200 400 Physical Exam General Appearance: Alert, Oriented X3, Cooperative, No Acute Distress HEENT: PERRLA Cardiovascular: Normal S1, Normal S2, No Murmurs Lungs: Clear to Auscultation, Normal Air Movement Abdomen: Normal Bowel Sounds, Soft, No Tenderness, No Hepatospenomegaly Neurological: Normal Gait, Normal Speech, Strength at 5/5 X4 Ext Extremities: No Edema Assessment/Plan Assessment: 62 years old woman was admitted for recurrent, symptomatic pancreatic pseudocyst ( s/p x2 drainage; lates in 2016 at [facility]) was admitted for acute pancreatitis and what it seems to be relapse of her symptomatic pseudocyst. List of active problems #1 acute pancreatitis #2 recurrent, symptomatic, pancreatic pseudocyst Plan * Po regimen for pain control * advance to regular low fat diet; if tolerated the diet could be discharged later today * prsecription for po Tramadol 50 mg 15 tabs * close follow up w Dr. Santo HICKS * plan was discussed with patient [employer] pain management Full code Problem List: 1. ac pancreatitis 2. Pseudocyst of pancreas Pain Ratin Pain Location: NA Pain Goal: Remain pain free Pain Plan: tramadol Tomorrow's Labs & Rationales: none Discharge Plan Discharge Disposition: home Stable for Discharge? Yes Anticipated Discharge (Day): today If Discharged Today/In 24 Hrs: CMR done Emilie HICKS,Norma 08/24/17 8245: Attending MD Review Statement Attending Statement Attending MD Statement: examined this patient, discuss w/resident/PA/BUTTON DECORATING MACHINE OPERATOR, agreed w/resident/PA/BUTTON DECORATING MACHINE OPERATOR, reviewed EMR data (avail), discussed with nursing, reviewed images Attending Assessment/Plan: Pt is feeling markedly better today. She is going to have a low-fat diet for lunch today. She hasn't required any IV pain meds today. Her abdomen is soft. And the IV fluids have been hep-locked. At this point the plan is to advance to low-fat diet for lunch and if she tolerates that okay and doesn't require any IV parenteral pain meds then she will leave today. She knows she needs to have a low-fat diet and close outpatient follow-up with Dr. Jelani Blanchard. We are giving her 15 tramadol tablets to leave with an outpatient follow-up.
[2017-08-24 06:47] VITALS: BP 132/84
[2017-08-24] MEDS ORDERED: TRAMADOL HCL50 M1 PO (09:45)
--- NOTE | 2017-08-24 09:47 | Patient Discharge Instructions ---
Discharge Instructions General Discharge Information You were seen/treated for: Acute pancreatitis recurrent symptomatic pancreatic cyst Watch for these problems: abdominal pain and nausea and vomiting Special Instructions: # follow up with Dr. Ariel Blanchard MD w/ in one week # follow up with your PCP Diet Continue normal diet: No Recommended Diet: Low Fat Additional DIET Information: Frequent small portion meals Activity Full Activity/No Limits: Yes Acute Coronary Syndrome Inclusion Criteria At DC or during hospital stay patient has or had the following: ACS DIAGNOSIS No Discharge Core Measures Meds if any: Prescribed or Continued at Discharge Meds if any: NOT Prescribed or Continued at Discharge Congestive Heart Failure Inclusion Criteria At DC or during hospital stay patient has or had the following: CHF DIAGNOSIS No Discharge Core Measures Meds if any: Prescribed or Continued at Discharge Meds if any: NOT Prescribed or Continued at Discharge Cerebrovascular accident Inclusion Criteria At DC or during hospital stay patient has or had the following: CVA/TIA Diagnosis No Discharge Core Measures Meds if any: Prescribed or Continued at Discharge Meds if any: NOT Prescribed or Continued at Discharge Venous thromboembolism Inclusion Criteria VTE Diagnosis No VTE Type NONE VTE Confirmed by (Test) NONE Discharge Core Measures - Per Current guidelines, there needs to be overlap - treatment for the first 5 days of Warfarin therapy. - If discharged on Warfarin prior to 5 days of - overlap therapy, the patient will need to be - assessed for post discharge needs including - *Post discharge parental anticoagulation - *Warfarin and/or parental anticoagulation education - *Follow up date to check INR post discharge At least 5 days overlap therapy as Inpatient No Meds if any: Prescribed or Continued at Discharge Note: Overlap Therapy is Warfarin and Anticoagulant Meds if any: NOT Prescribed or Continued at Discharge
--- NOTE | 2017-08-24 09:51 | Discharge Summary ---
Visit Information Visit Dates Admission Date: 08/21/17 Discharge Date: 08/24/2017 Hospital Course Course Attending Physician: Golden Dumont MD Primary Care Physician: Sean Grover MD Allergies: Coded Allergies: No Known Allergies (08/21/17) Discharge Instructions Medications at Discharge Discharge Medications: Continue taking these medications: Levothyroxine Sodium (Levothyroxine Sodium) 100 MCG TABLET 1 Tablet ORAL DAILY Qty = 90 Ergocalciferol (Vitamin D2) (Vitamin D2) 50,000 UNIT CAPSULE 1 Capsule ORAL Once a Week Qty = 6 Aspirin (Ecotrin*) 81 MG TABLET.DR 1 Tablet ORAL Every other day Comments: Last Taken:08/24/17 Time:1000 Start taking the following new medications: Tramadol HCl (Tramadol HCl) 50 MG TABLET 1 Milligram ORAL EVERY SIX HOURS as needed for PAIN SCALE 4-6 (MODERATE) Qty = 15 No Refills Copies To: Sean Grover MD
== END 2017-08-24 12:33 | DRG 439 ==
LOC: ERH 00:23 → ERHI 03:13 → 2NA 03:13 → ENPENDDIS 08-24 10:10 → ENTRNSPT 08-24 12:18 → 2NA 08-24 12:33 → CMPTRNSPT 08-24 13:39
PROVIDERS: Emergency Medicine; Internal Medicine Endocrinology, Diabetes & Metabolism; Student in an Organized Health Care Education/Training Program
DX: K85.90 Acute pancreatitis without necrosis or infection, unspecified (principal); K86.3 Pseudocyst of pancreas; E03.9 Hypothyroidism, unspecified; K21.0 Gastro-esophageal reflux disease with esophagitis
CPT/HCPCS: 2NAP; 84133; 84300; 36415; 74177; 81003; 82436; 82570; 93005; 93010; 96361; 96374; 96375; J1644; J2405; J7120